=== PATIENT | female | born 1960 | race Caucasian/White ===

== ENCOUNTER 2017-01-17 08:07 | Emergency (ER) | payer MEDICAID ==
[~2017-01-17] VITALS: Ht 160 cm; Wt 80.0 kg
[2017-01-17 08:12] VITALS: Ht 160 cm; Wt 80.0 kg
[2017-01-17] MEDS ORDERED: KETOROLAC 30 MG INJ IM STA (08:30)
[2017-01-17] MEDS ORDERED: ONDANSETRON (ODT) 4 MG TAB ODT STA (08:30)
[2017-01-17 09:00] LABS: URINE BLOOD (Dip) POC Negative (NEGATIVE)
[2017-01-17 10:45] LABS: BASOPHILS % 0.4 % (0.0-2.0); EOSINOPHILS # 0.2 10^3/ul (0.0-0.5); EOSINOPHILS % 2.9 % (0.0-7.0); HEMATOCRIT 38.6 % (37.0-47.0); HEMOGLOBIN 12.7 g/dl (12.0-16.0); LYMPHOCYTES # 3.2 10^3/ul (0.8-2.9); LYMPHOCYTES % 46.6 % (15.0-51.0); MEAN CORPUSCULAR HEMOGLOBIN 29.9 pg (29.0-33.0); MEAN CORPUSCULAR HGB CONC 32.9 g/dl (32.0-37.0); MEAN CORPUSCULAR VOLUME 90.8 fl (82.0-101.0); MEAN PLATELET VOLUME 11.4 fl (7.4-10.4); MONOCYTE # 0.4 10^3/ul (0.3-0.9); MONOCYTES % 5.8 % (0.0-11.0); NEUTROPHILS % 44.2 % (39.0-77.0); PLATELET COUNT 240 10^3/UL (140-415); RED BLOOD COUNT 4.25 10^6/ul (4.20-5.40); WHITE BLOOD COUNT 6.8 10^3/ul (4.8-10.8)
[2017-01-17 11:07] LABS: ALBUMIN 4.2 g/dl (3.3-4.9); ALBUMIN/GLOBULIN RATIO 1.16; BILIRUBIN,INDIRECT 0.3 mg/dl (0-1.1); BILIRUBIN,TOTAL 0.3 mg/dl (0.2-1.3); CALCIUM 9.2 mg/dl (8.4-10.2); CREATININE 0.63 mg/dl (0.44-1.00); TOTAL PROTEIN 7.8 g/dl (6.1-8.1)
--- NOTE | 2017-01-17 11:16 | ERD ---
ER Documentation Chief Complaint Date/Time DATE: 01/17/17 TIME: 11:15 Chief Complaint fever , chills , back pain x 1 week HPI This 56-year-old female who presents to the emergency department today complaining of some back pain, fever, chills and intermittent headaches for the past week. She has some nausea. denies any cough, blurred vision. States she is taking some Advil. ROS All systems reviewed and are negative except as per history of present illness. Medications Home Meds Active Scripts Acetaminophen* (Tylophen*) 500 Mg Capsule, 1 CAP PO Q6H Y for PAIN AND OR ELEVATED TEMP, #30 CAP Prov:HERACLIO OSULLIVAN PA-C 01/17/17 Naproxen* (Naprosyn*) 500 Mg Tablet, 500 MG PO BID Y for PAIN AND/OR INFLAMMATION, #30 TAB Prov:HERACLIO OSULLIVAN PA-C 01/17/17 PMhx/Soc Medical and Surgical Hx: pt denies Medical Hx, pt denies Surgical Hx Hx Alcohol Use: No Hx Substance Use: No Hx Tobacco Use: No Physical Exam Vitals Vital Signs Date Time Temp Pulse Resp B/P Pulse Ox O2 Delivery O2 Flow Rate FiO2 01/17/17 08:12 98.9 63 18 117/56 98 Physical Exam Const: No acute distress Head: Atraumatic. PERRLA. EOM intact Eyes: Normal Conjunctiva ENT: Ears TMs normal. Nose no drainage. Throat no erythema no exudate Neck: Full range of motion..~ No meningismus. Resp: Clear to auscultation bilaterally Cardio: Regular rate and rhythm, no murmurs Abd: Soft, non tender, non distended. Normal bowel sounds Skin: No petechiae or rashes Back: No midline or flank tenderness Ext: No cyanosis, or edema Neur: Awake and alert. Cranial nerves II through XII intact. No gait ataxia. Psych: Normal Mood and Affect Result Diagram: 01/17/17 1040 01/17/17 1040 Results 24 hrs Laboratory Tests Test 01/17/17 09:06 01/17/17 10:40 Bedside Urine pH (LAB) 5.5 Bedside Urine Protein (LAB) Negative Bedside Urine Glucose (UA) Negative Bedside Urine Ketones (LAB) Negative Bedside Urine Blood Negative Bedside Urine Nitrite (LAB) Negative Bedside Urine Leukocyte Esterase (L Negative White Blood Count 6.810^3/ul Red Blood Count 4.2510^6/ul Hemoglobin 12.7g/dl Hematocrit 38.6% Mean Corpuscular Volume 90.8fl Mean Corpuscular Hemoglobin 29.9pg Mean Corpuscular Hemoglobin Concent 32.9g/dl Red Cell Distribution Width 12.0% Platelet Count 92295^3/UL Mean Platelet Volume 11.4fl Neutrophils % 44.2% Lymphocytes % 46.6% Monocytes % 5.8% Eosinophils % 2.9% Basophils % 0.4% Nucleated Red Blood Cells % 0.0/100WBC Neutrophils # 3.010^3/ul Lymphocytes # 3.210^3/ul Monocytes # 0.410^3/ul Eosinophils # 0.210^3/ul Basophils # 0.010^3/ul Nucleated Red Blood Cells # 0.010^3/ul Sodium Level 144mmol/L Potassium Level 5.0mmol/L Chloride Level 106mmol/L Carbon Dioxide Level 26mmol/L Anion Gap 17 Blood Urea Nitrogen 14mg/dl Creatinine 0.63mg/dl Glucose Level 94mg/dl Calcium Level 9.2mg/dl Total Bilirubin 0.3mg/dl Direct Bilirubin 0.00mg/dl Indirect Bilirubin 0.3mg/dl Aspartate Amino Transf (AST/SGOT) 29IU/L Alanine Aminotransferase (ALT/SGPT) 37IU/L Alkaline Phosphatase 84IU/L Total Protein 7.8g/dl Albumin 4.2g/dl Globulin 3.60g/dl Albumin/Globulin Ratio 1.16 Current Medications Medications (Trade) Dose Ordered Sig/Elva Route PRN Reason Start Time Stop Time Status Last Admin Dose Admin Ondansetron HCl (Zofran Odt) 4 mg ONCE STAT ODT 01/17/17 08:30 01/17/17 08:32 DC 01/17/17 08:40 Ketorolac Tromethamine (Toradol) 30 mg ONCE STAT IM 01/17/17 08:30 01/17/17 08:32 DC 01/17/17 08:39 Procedures/MDM This 56-year-old female who presents to the emergency department today complaining of intermittent headaches, fevers, body aches, chills back pain for the past week. Upon further questioning patient never took her temperature she just "felt hot". Given patient's age I did obtain laboratory workup. Patient was requesting to leave stating that she felt better prior to receiving her laboratory work results and I explained to the patient that I prefer that she wait for results of her labs. Patient agreed Laboratory workup shows no elevated white blood cell count. She is not anemic. Platelets are within normal limits. Electrolytes are within normal limits. Glucose within normal limits. Liver enzymes within normal limits. UA is negative for infection. Patient is afebrile and otherwise well-appearing. She has no focal neurologic deficits. She has no gait ataxia. Do not feel the patient requires a head CT scan at this time. Her laboratory workup is normal. Patient reported that her headache and body aches had improved. Patient was describing pain on her bilateral upper trapezius that went up towards her neck. Possibly tension type headache. I have low suspicion for acute hemorrhage, mass, abscess. Patient symptoms at this time is consistent with headache and body aches versus flulike symptoms. At this time the patient is stable for discharge and outpatient management. Patient should follow up with their PCP in the next 1-2 days. They may return to the emergency department sooner for any persistent or worsening of symptoms. Patient understood and agreed with the plan. Departure Diagnosis: Primary Impression: Headache Headache type: unspecified Headache chronicity pattern: episodic headache Intractability: not intractable Qualified Code: R51 - Nonintractable episodic headache, unspecified headache type Additional Impression: Body aches Condition: HERACLIO Marcos PA-C Jan 17, 2017 11:15
[2017-01-17] MEDS ORDERED: NAPR-260 PO (11:17)
[2017-01-17] MEDS ORDERED: ACET500C5 PO (11:17)
[2017-01-19 16:10] LABS: URINE BLOOD (Dip) POC Negative (NEGATIVE)
== END 2017-01-17 11:45 | disposition home or self-care (01) ==
LOC: FTE 08:07
DX: R51 Headache (principal); R11.0 Nausea
CPT/HCPCS: 80053; 81003; 85025; 96372; J1885; Z7502; Z7610

== ENCOUNTER 2017-06-12 12:32 | Emergency (ER) | payer MEDICAID, OTHER ==
[~2017-06-12] VITALS: Ht 152.4 cm; Wt 83.0 kg
[~2017-06-12 12:32] MED LIST: ACET500C5 PO; NAPR-260 PO
[2017-06-12 12:49] VITALS: Ht 152.4 cm; Wt 83.0 kg
[2017-06-12] MEDS ORDERED: KETOROLAC 30 MG INJ IM STA (13:47)
[2017-06-12] MEDS ORDERED: HYDROCODONE/APAP (5/325) TAB PO ONE (14:00)
[2017-06-12] MEDS ORDERED: NAPR-260 PO (14:08)
[2017-06-12] MEDS ORDERED: TRAM50TA2 PO (14:08)
--- NOTE | 2017-06-12 14:12 | ERD ---
ER Documentation Chief Complaint Chief Complaint CHRONIC LOW BACK PAIN WITHRADIATING LEFT HIP/LEG PAIN WORSE X 3 DAYS HPI Patient is a 56-year-old female with a past medical history of chronic back pain who presents to the ED for concerns of left-sided lower back pain radiating down her left leg. Patient states that she has had symptoms now for 4 days. Patient denies any falls or trauma. Denies any heavy lifting. Patient states that the pain is worse with positional changes including standing up or lying down. Patient reports taking Advil for her symptoms and does state she has intermittent relief. Patient denies any saddle anesthesia, urinary incontinence, stool incontinence, dysuria, frequency, hematuria, flank pain, fever or chills. Patient denies any chest pain or shortness of breath. Patient is able to ambulate without any difficulty. ROS All systems reviewed and are negative except as per history of present illness. Medications Home Meds Active Scripts Tramadol HCl (Tramadol HCl) 50 Mg Tablet, 50 MG PO Q4 Y for PAIN, #20 TAB Prov:KB SULLIVAN PA-C 06/12/17 Naproxen* (Naprosyn*) 500 Mg Tablet, 500 MG PO BID Y for PAIN AND/OR INFLAMMATION, #30 TAB Prov:KB SULLIVAN PA-C 06/12/17 Acetaminophen* (Tylophen*) 500 Mg Capsule, 1 CAP PO Q6H Y for PAIN AND OR ELEVATED TEMP, #30 CAP Prov:HERACLIO OSULLIVAN PA-C 01/17/17 Naproxen* (Naprosyn*) 500 Mg Tablet, 500 MG PO BID Y for PAIN AND/OR INFLAMMATION, #30 TAB Prov:HERCALIO SOULLIVAN PA-C 01/17/17 Allergies Allergies: Coded Allergies: No Known Allergy (Unverified , 06/12/17) PMhx/Soc History of Surgery: No Anesthesia Reaction: No Hx Neurological Disorder: No Hx Respiratory Disorders: No Hx Cardiac Disorders: Yes (HTN ) Hx Psychiatric Problems: No Hx Miscellaneous Medical Probl: Yes (CHRONIC BACK PAIN ) Hx Alcohol Use: No Hx Substance Use: No Hx Tobacco Use: No Smoking Status: Never smoker Physical Exam Vitals Vital Signs Date Time Temp Pulse Resp B/P Pulse Ox O2 Delivery O2 Flow Rate FiO2 06/12/17 12:49 99.7 75 20 141/65 98 Physical Exam GENERAL: Well-developed, well-nourished female. Appears in no acute distress. HEAD: Normocephalic, atraumatic. EYES: Pupils are equally reactive bilaterally. EOMs grossly intact. No conjunctival erythema. ENT: Moist mucous membranes. No uvula deviation. No kissing tonsils. NECK: Supple. No meningismus. Normal range of motion of the neck. LUNG: Clear to auscultation bilaterally. No rhonchi, wheezing, rales or coarse breath sounds. HEART: Regular rate and rhythm. No murmurs, rubs or gallops. ABDOMEN: No scars, ecchymosis or rashes noted. Soft, nontender, and nondistended. Positive bowel sounds in all four quadrants. No rebound tenderness , no guarding. (-) McBurney's point tenderness. No CVA tenderness. BACK: No midline tenderness. Tender to palpation of the left lumbar paraspinal muscles. Positive straight leg raise on the left side. EXTREMITIES: Equal pulses bilaterally. No peripheral clubbing, cyanosis or edema. No unilateral leg swelling. NEUROLOGIC: Alert and oriented. Moving all four extremities without any difficulty. Normal speech. Steady gait. SKIN: Normal color. Warm and dry. No rashes or lesions. Results 24 hrs Current Medications Medications (Trade) Dose Ordered Sig/Elva Route PRN Reason Start Time Stop Time Status Last Admin Dose Admin Ketorolac Tromethamine (Toradol) 30 mg ONCE STAT IM 06/12/17 13:47 06/12/17 13:49 DC 06/12/17 14:01 Acetaminophen/ Hydrocodone Bitart ([place] (5/325)) 1 tab ONCE ONCE PO 06/12/17 14:00 06/12/17 14:01 DC 06/12/17 14:01 Procedures/MDM MEDICAL DECISION MAKING: This is a 56-year-old female with history of chronic back pain presents to the ED for concerns of acute exasperation of lower back pain 4 days. Vital signs were reviewed. Patient was afebrile. Patient denied any ear, chills, chest pain , shortness breath, saddle anesthesia, urinary incontinence, bowel incontinence , night pain or recent trauma. Given that patient denies any falls or trauma, there is no indication for x-ray imaging at this time. Patient was given Toradol as well as [place] here in the ED. Patient reported improvement in pain. Given these findings, the patient's presentation is most consistent with back pain with left-sided sciatica.. I have a much lower clinical concern for cauda equine syndrome, spinal fractures, epidural abscess, spinal metastases, osteomyelitis, aortic dissection, ruptured or leaking AA, pyelonephritis or nephrolithiasis. PRESCRIPTIONS: Tramadol Naproxen DISCHARGE: At this time, patient is stable for discharge and outpatient management. RICE therapy and ROM exercises were advised to avoid stiffness. I have instructed the patient to follow-up with his/her primary care physician in 1-2 days. I have discussed with the patient the possibility of needing to see an embroidery specialist for further workup and imaging if the pain persists. I have instructed the patient to promptly return to the ER for any new or worsening symptoms including increased pain, swelling, warmth, urinary incontinence, stool incontinence, weakness or numbness. The patient and/or family expressed understanding of and agreement with this plan. All questions were answered. Home care instructions were provided. Patients blood pressure was elevated (>120/80) but appears stable without evidence of hypertensive emergency, hypertensive urgency or end-organ failure. I had discussion with the patient about the risks of hypertension. I have advised the patient to follow up with his/her primary care physician for outpatient monitoring and treatment for hypertension in 2-3 days. I have instructed the patient to return to the ER for any new or worsening symptoms including chest pain, shortness of breath, headache, blurred vision, confusion, nausea, vomiting or LOC. Disclaimer: Inadvertent spelling and grammatical errors are likely due to EHR/ dictation software use and do not reflect on the overall quality of patient care. Also, please note that the electronic time recorded on this note does not necessarily reflect the actual time of the patient encounter. Departure Diagnosis: Primary Impression: Back pain Back pain location: low back pain Chronicity: acute Back pain laterality: left Sciatica presence: with sciatica Sciatica laterality: sciatica of left side Qualified Code: M54.42 - Acute left-sided low back pain with left-sided sciatica Condition: Stable Patient Instructions: Back Pain W/ Sciatica Referrals: SHAWN PETERSON (PCP) Additional Instructions: Llame al doctor SAMIR y maru ramu NATE PARA DENTRO DE 1-2 ONEILL.Dgale a la secretaria que nosotros le instruimos hacer esta nate.Avise o llame si stover condicin se empeora antes de la nate. Regresa aqui si peor o no mejor. KB SULLIVAN PA-C Jun 12, 2017 14:12
== END 2017-06-12 14:45 | disposition home or self-care (01) ==
LOC: FTE 12:32
DX: M54.42 Lumbago with sciatica, left side (principal); I10 Essential (primary) hypertension
CPT/HCPCS: 96372; J1885; Z7502; Z7610

== ENCOUNTER 2018-02-17 09:02 | Emergency (ER) | END 2018-02-17 11:07 | disposition home or self-care (01) ==

== ENCOUNTER 2019-03-21 09:15 | Emergency (ER) | payer MEDICAID, OTHER ==
[~2019-03-21] VITALS: Ht 160 cm; Wt 81.3 kg
[~2019-03-21 09:15] MED LIST changes: +CIPR500T4 PO; +CYCL10TA7 PO; +HYDR-4011 PO; +MED4DP PO; -NAPR-260 PO; +NAPR-985 PO; +PRED20TA PO; +TRAM50TA2 PO
[2019-03-21 09:19] VITALS: BP 135/69; PULSE 71; RESP 18; Ht 160 cm; Wt 81.3 kg
[2019-03-21] MEDS ORDERED: KETOROLAC 30 MG INJ IM STA (10:11)
== END 2019-03-21 10:58 | disposition home or self-care (01) ==
LOC: FTE 09:15
DX: M54.5 Low back pain (principal); I10 Essential (primary) hypertension
CPT/HCPCS: 96372; J1885; Z7502